=== PATIENT | male | born 1965 | race Caucasian/White ===

== ENCOUNTER 2023-08-16 14:16 | Emergency (ER) | payer OTHER, SELFPAY ==
[2023-08-16 14:24] VITALS: BP 126/78; PULSE 89; RESP 18; TEMP 36.6; O2SAT 98; BMI 24.0
--- NOTE | 2023-08-16 14:24 | ED_ITS ---
HPI - Psych General Chief Complaint: General Medical Stated Complaint: Needs Psych Meds Time Seen by Provider: 08/16/23 14:45 Source: patient and other (patient's helper) Mode of arrival: ambulatory Limitations: no limitations History of Present Illness HPI Narrative: Patient is a 58 year old assigned male at with a history of HTN, HLD, anxiety, and insomnia presenting to the emergency department today for me dication refills. Patient's promotional advertising assistant states that the patient had an appointment with his PCP scheduled for today but they were told last minute they had to reschedule to 09/01/2023. Patient's promotional advertising assistant states that the patient is out of all of his medications and was banking on the visit with his PCP today to refill them. Patient's promotional advertising assistant states that they have tried to speak to someone at the PCP office about refiling them but they are refusing to do so until they see the patient. Patient denies any dizziness, lightheadedness, abdominal pain, nausea, vomiting, fever, chills, blurry vision, double vision, loss of vision, chest pain, difficulty breathing, shortness of breath, back pain, night sweats, pain with urination, increased urinary frequency, increased urinary urgency, blood in his urine or stool, syncope or a near syncopal episode, recent trauma or falls, bowel incontinence, bladder incontinence, bowel retention, bladder retention, or any other complaints at this time. Related Data Previous Rx's Medication Instructions Recorded albuterol sulfate 90 mcg/actuation 2 puff inhalation Q6H PRN 08/16/23 aerosol inhaler bronchospasm #8.5 grams atorvastatin 20 mg tablet 20 mg PO DAILY #30 tabs 08/16/23 benztropine 1 mg tablet 1 mg PO DAILY #30 tabs 08/16/23 duloxetine 30 mg capsule,delayed 30 mg PO DAILY #30 caps 08/16/23 release fluticasone fur. 200 mcg-umeclid 1 inh inhalation DAILY #60 ea 08/16/23 62.5 mcg-vilant 25 mcg inhalat.powder (Trelegy Ellipta) gabapentin 300 mg capsule 300 mg PO QID #120 caps 08/16/23 loratadine 10 mg tablet (Allergy 10 mg PO DAILY #30 tabs 08/16/23 Relief (loratadine)) losartan 25 mg tablet 25 mg PO DAILY #30 tabs 08/16/23 metoprolol succinate 25 mg 25 mg PO DAILY #30 tabs 08/16/23 tablet,extended release 24 hr mirtazapine 30 mg tablet (Remeron) 30 mg PO BEDTIME #30 tabs 08/16/23 nicotine (polacrilex) 2 mg buccal 2 mg mucous membrane Q1H PRN 08/16/23 mini lozenge nicotine cravings #81 ea nicotine 21 mg/24 hr daily 1 patch transdermal DAILY #28 ea 08/16/23 transdermal patch risperidone 1 mg tablet 1 mg PO BID #60 tabs 08/16/23 tamsulosin 0.4 mg capsule 0.4 mg PO DAILY #60 caps 08/16/23 trazodone 100 mg tablet 100 mg PO DAILY #30 tabs 08/16/23 Allergies Allergy/AdvReac Type Severity Reaction Status Date / Time No Known Allergies Allergy Verified 08/16/23 14:23 Review of Systems Constitutional: Constitutional: Reports no additional constitutional complaints, Denies chills, Denies fever(s) and Denies night sweats Eyes: Eyes: Reports no additional eye complaints, Denies blurry vision, Denies change in vision, Denies diplopia, Denies eye discharge, Denies loss of vision and Denies eye pain ENT: Denies dizziness Cardiovascular: Cardiovascular: Reports no additional cardiovascular complaints, Denies chest pain, Denies lightheadedness, Denies Loss of Consciousness and Denies dyspnea Respiratory: Respiratory: Reports no additional respiratory complaints and Denies dyspnea Gastrointestinal: Gastrointestinal: Reports no additional gastrointestinal complaints, Denies abdominal pain, Denies melena, Denies hematochezia, Denies change in bowel habits and Denies change in stool character Genitourinary: Genitourinary: Reports no additional male genitourinary complaints, Denies hematuria, Denies oliguria, Denies difficulty urinating, Denies dysuria, Denies urinary frequency, Denies urinary hesitancy, Denies urinary incontinence and Denies urinary urgency Musculoskeletal: Musculoskeletal: Reports no additional musculoskeletal complaints, Denies numbness and Denies tingling Neurologic: Denies dizziness, Denies loss of vision, Denies numbness and Denies tingling Psychiatric: Psychiatric: Reports no additional psychiatric complaints Endocrine: Endocrine: Reports no additional endocrine complaints Hematologic/Lymphatic: Hematologic/Lymphatic: Reports no additional hematologic/lymphatic complaints Allergic/Immunologic: Allergic/Immunologic: Reports no additional allergic /immunologic complaints PMFSH Past Medical History Attestation statement: The following information was validated with the patient. Source: old records reviewed, nursing notes reviewed and other (patient's promotional advertising assistant provided additional history and confirmed the history provided by the patient.) Social History Social History Advance Directives: No Advance Directives Information Provided: No Physical Exam Vital Signs: Vital Signs: Last Vital Signs Temp 98 F 08/16/23 14:24 Pulse 89 08/16/23 14:24 Resp 18 08/16/23 14:24 BP 126/78 08/16/23 14:24 Pulse Ox 98 08/16/23 14:24 O2 Del Method Room Air 08/16/23 14:24 BMI result Body Mass Index 24.0 Const: General: cooperative, no acute distress, alert and awake Nutritional Appearance: well nourished Orientation/consciousness: patient oriented x3 Limitations: no limitations HEENT: Head: Yes normal to inspection and Yes atraumatic Ears: hearing grossly normal bilaterally and external ears normal General nose exam: Normal external nose present, no nasal discharge noted and no epistaxis Face and sinus: Yes normal facial exam, No abrasion and No laceration Mouth: Normal oral and palatal mucosa present, no drooling and no muffled voice Eyes: General: appearance normal, both eyes and all related structures Periorbital: periorbital findings normal Eyelids: Yes eyelids normal Conjunctivae: conjunctivae normal Pupils: Equal, round and reactive pupils present EOM: EOMs intact bilaterally Neck: Neck: Yes normal visual inspection, Yes full ROM and Yes no lymphadenopathy Chest: Chest palpation & inspection: normal inspection of the chest Resp: Effort & Inspection: normal respiratory effort and able to speak in complete sentences GI: Inspection: Yes normal to inspection Neuro: General: patient oriented x3 and moves all extremities Cranial nerves: Yes Equal, round and reactive pupils present Cognition (Neuro): normal cognition Motor exam (neuro): 5/5 motor strength present throughout Sensory Exam: Normal double simultaneous stimulation for sensation Coordination: [id number] test normal Extrem: General: Yes normal to inspection, Yes full ROM and Yes capillary refill normal Psych: Appearance: grossly normal Mental Status: mental status grossly normal Affect: normal affect Attitude: cooperative Thought process: Normal thought process present Thought content: Normal thought content present Insight: Good insight present (Psych) Course Course Course Narrative: This is a rapid medical exam: Additional HPI, ROS, PE not included below will be deferred to primary provider. Patient is a 58-year-old male with history of NSTEMI, cardiomyopathy, T12 compression fx presenting to the emergency department complaining of anxiety, insomnia, states he has been out of his medications for 3-4 days. States previous provider was in [place], had an appointment today with a new provider but when he got to the office the provider was not there for the appointment. States the only medication he's not out of i s his metoprolol. Patient is on a significant number of medications. Medical Decision Making Medical Decision Making MDM Narrative: Patient is a 58 year old assigned male at with a history of HLD, HTN, and anxiety presenting to the emergency department today requesting a medication refill. Patient's physical exam was unremarkable. I explained my physical exam findings to the patient and the patient's promotional advertising assistant. I answered all questions asked by the patient and the patient's promotional advertising assistant. Patient provided a verified list of medications. Given patient has an promotional advertising assistant to help with the organization of these medications and confirms the need for them, I am comfortable prescribing a months worth of his daily medications. I stressed the importance of the patient taking his medication as prescribed. I stressed the importance of the patient following up with his primary care provider on 2023 as scheduled. I stressed the importance of the patient returning to the emergency department immediately if his symptoms were to worsen or if he were to develop any dizziness, shortness of breath, difficulty breathing, chest pain, blurry vision, loss of vision, nausea, vomiting, abdominal pain, fever, chills, back pain, or any other complaints. Patient and the patient's promotional advertising assistant verbalized agreement and understanding with this treatment plan and discharge. Differential Diagnosis Differential Diagnoses: The differential diagnosis associated with the presentation includes Medication refill Admission/Observation Consideration of admission/observation: Escalation of care including admission/observation considered Patient would have been admitted to the hospital had his clinical presentation warranted hospital admission. Independent Historian Clinical information obtained from an independent historian. History obtained from or confirmed by: Other (patient's promotional advertising assistant provided additional history and confirmed the history provided by the patient.) Prescription Management I considered prescription management with: Other (patient prescribed his chronic medications for 1 month.) Discharge Plan Discharge Clinical Impression: Medication refill Patient Disposition: Home, Self-Care Instructions: Medicine Refill (ED) Additional Instructions: I prescribed enough medication to cover you for 1 month. Please go to your appointment with your PCP as scheduled on 09/01/2023. Follow up with your primary care provider. Return to the emergency department immediately if your symptoms worsen or if you develop any dizziness, shortness of breath, difficulty breathing, chest pain, blurry vision, loss of vision, nausea, vomiting, abdominal pain, fever, chills, back pain, or any other complaints. Prescriptions: New nicotine (polacrilex) 2 mg mini lozenge 2 mg mucous membrane Q1H PRN (Reason: nicotine cravings) Qty: 81 0RF Rx Instructions: do not exceed more than 20 edy per day loratadine [Allergy Relief (loratadine)] 10 mg tablet 10 mg PO DAILY Qty: 30 0RF nicotine 21 mg/24 hr patch 24 hour 1 patch transdermal DAILY Qty: 28 0RF Rx Instructions: Apply 1 patch every day and remove at bed time. benztropine 1 mg tablet 1 mg PO DAILY Qty: 30 0RF Rx Instructions: Take 1 tablet by mouth every day at bed time. albuterol sulfate 90 mcg/actuation HFA aerosol inhaler 2 puff inhalation Q6H PRN (Reason: bronchospasm) Qty: 8.5 0RF gabapentin 300 mg capsule 300 mg PO QID Qty: 120 0RF Rx Instructions: Take 1 capsule by mouth 4 times a day. duloxetine 30 mg capsule,delayed release(DR/EC) 30 mg PO DAILY Qty: 30 0RF trazodone 100 mg tablet 100 mg PO DAILY Qty: 30 0RF tamsulosin 0.4 mg capsule 0.4 mg PO DAILY Qty: 60 0RF Rx Instructions: Take 2 capsules by mouth every day 1/2 hour following the same meal each day metoprolol succinate 25 mg tablet extended release 24 hr 25 mg PO DAILY Qty: 30 0RF Trelegy Ellipta 200-62.5-25 mcg blister with device 1 inh inhalation DAILY Qty: 60 0RF Rx Instructions: Inhale 1 puff every day at the same time. atorvastatin 20 mg tablet 20 mg PO DAILY Qty: 30 0RF mirtazapine [Remeron] 30 mg tablet 30 mg PO BEDTIME Qty: 30 0RF losartan 25 mg tablet 25 mg PO DAILY Qty: 30 0RF Rx Instructions: Take 1/2 tablet by mouth every day. risperidone 1 mg tablet 1 mg PO BID Qty: 60 0RF Interventions: ED Discharge Assessment Last Done: 08/16/23 15:12 Discharge Date/Time: 08/16/23 15:13 Print Language: Hebrew
== END 2023-08-16 15:13 | disposition home or self-care (01) ==
LOC: HO.ED 15:07
PROVIDERS: Emergency Provider Emergency Medicine
DX: Z76.0 Encounter for issue of repeat prescription (principal); F41.9 Anxiety disorder, unspecified; G47.00 Insomnia, unspecified; I10 Essential (primary) hypertension; I42.9 Cardiomyopathy, unspecified; I25.2 Old myocardial infarction
CPT/HCPCS: 99282; 99283